=== PATIENT | male | born 1995 | race Two or more races ===

== ENCOUNTER 2020-02-27 17:25 | Emergency (ER) | payer OTHER ==
[~2020-02-27] VITALS: Ht 172.7 cm; Wt 72.7 kg
--- NOTE | 2020-02-27 17:51 | PHYS DOC ---
General Adult EDM: Chief Complaint: SUICDAL IDEATION HPI: HPI: Patient is a 24 year old male who presents with suicidal ideation. His supervising officer found a suicide note and called the police. The patient was found in the park with a fire arm. The patient states his plan today was to shoot himself. Patient states that back in November his daughter and was 2 days old. He states he is now recently going through divorce. States in the past that he had thoughts of committing suicide by overdosing on hydrocodone. He does not currently have any other medication in his possession. He states he is not on any medications. He states he has never been diagnosed with anything. (MARGO ROBERTS APRN) Review of Systems: Review of Systems: Constitutional: Denies fever or chills. [] Eyes: Denies change in visual acuity. [] HENT: Denies nasal congestion or sore throat. [] Respiratory: Denies cough or shortness of breath. [] Cardiovascular: Denies chest pain or edema. [] GI: Denies abdominal pain, nausea, vomiting, bloody stools or diarrhea. [] : Denies dysuria. [] Musculoskeletal: Denies back pain or joint pain. [] Integument: Denies rash. [] Neurologic: Denies headache, focal weakness or sensory changes. [] Endocrine: Denies polyuria or polydipsia. [] Lymphatic: Denies swollen glands. [] Psychiatric: + Suicidal ideation. denies depression or anxiety. [] (MARGO ROBERTS APRN) Heart Score: Risk Factors: Risk Factors: DM, Current or recent (<one month) smoker, HTN, HLP, family history of CAD, obesity. Risk Scores: Score 0 - 3: 2.5% MACE over next 6 weeks - Discharge Home Score 4 - 6: 20.3% MACE over next 6 weeks - Admit for Clinical Observation Score 7 - 10: 72.7% MACE over next 6 weeks - Early Invasive Strategies (MARGO ROBERTS APRN) Allergies: Allergies: Allergies Coded Allergies Type Severity Reaction Last Updated Verified peanut Allergy Unknown 02/27/20 Yes (MARGO ROBERTS APRN) Physical Exam: PE: Constitutional: Well developed, well nourished, no acute distress, non-toxic appearance. [] HENT: Normocephalic, atraumatic, bilateral external ears normal, oropharynx moist, no oral exudates, nose normal. [] Eyes: PERRLA, EOMI, conjunctiva normal, no discharge. [] Neck: Normal range of motion, no tenderness, supple, no stridor. [] Cardiovascular:Heart rate regular rhythm, no murmur [] Lungs & Thorax: Bilateral breath sounds clear to auscultation [] Abdomen: Bowel sounds normal, soft, no tenderness, no masses, no pulsatile masses. [] Skin: Warm, dry, no erythema, no rash. [] Back: No tenderness, no CVA tenderness. [] Extremities: No tenderness, no cyanosis, no clubbing, ROM intact, no edema. [] Neurologic: Alert and oriented X 3, normal motor function, normal sensory function, no focal deficits noted. [] Psychologic: Affect normal, judgement normal, mood normal. Suicidal ideation [] (MARGO ROBERTS APRN) EKG: EKG: [] (MARGO ROBERTS APRN) Radiology/Procedures: Radiology/Procedures: [] (MARGO ROBERTS APRN) Course & Med Decision Making: Course & Med Decision Making Pertinent Labs and Imaging studies reviewed. (See chart for details) See HPI. Patient is calm and cooperative. He states that he would be willing to go to a psychiatric facility if needed. He is alert and oriented x4. Speaks in full complete sentences. Ambulatory with a steady gait. Denies hallucinations, drug use, alcohol use. I have spoken to Gorge with PAT team who is coming in to speak with the patient. Patient is a one-to-one and on suicidal precautions. The PET team has been here to speak with the patient. Patient has been medically cleared. The patient has been accepted to [facility] in [place]. Patient was accepted by Dr Ortiz [] (MARGO ROBERTS APRN) Tiara Disclaimer: Tiara Disclaimer: This electronic medical record was generated, in whole or in part, using a voice recognition dictation system. (MARGO ROBERTS APRN) Departure Departure Impression: Primary Impression: Suicidal ideation Disposition: 66 DC/TRF TO PSYCH HOSP ([facility] in [place]) Condition: STABLE Attending Signature Attending Signature I have reviewed the PA/AUTO BODY STRAIGHTENER's note and plan of care. I was available for consultation as needed during the patient's visit in the emergency department. I agree with the clinical impression, plan, and disposition. (KRUPA CHAVEZ DO) MARGO ROBERTS APRN Feb 27, 2020 17:51 KRUPA CHAVEZ DO Feb 28, 2020 10:21
[2020-02-27 17:53] LABS: BASO % 0 % (0-3); EOS # 0.1 x10^3/uL (0.0-0.7); EOS % 2 % (0-3); HEMATOCRIT 44.8 % (39.0-53.0); HEMOGLOBIN 14.8 g/dL (13.0-17.5); LYMPH # 1.1 x10^3/uL (1.0-4.8); LYMPH % 13 % (24-48); MEAN CORPUSCULAR HEMOGLOBIN 29 pg (25-35); MEAN CORPUSCULAR HGB CONC 33 g/dL (31-37); MEAN CORPUSCULAR VOLUME 87 fL (79-100); MONO # 0.3 x10^3/uL (0.0-1.1); MONO % 4 % (0-9); NEUT # 6.8 x10^3/uL (1.8-7.7); NEUT % 82 % (31-73); PLATELET COUNT 262 x10^3/uL (140-400); RED BLOOD COUNT 5.16 x10^6/uL (4.30-5.70); RED CELL DISTRIBUTION WIDTH 13.3 % (11.5-14.5); WHITE BLOOD COUNT 8.4 x10^3/uL (4.0-11.0)
[2020-02-27 18:00] LABS: BARBITURATES NEG (NEG); BENZODIAZEPINES NEG (NEG); CANNABINOIDS NEG (NEG); COCAINE NEG (NEG); METHADONE NEG (NEG); OPIATES NEG (NEG); PHENCYCLIDINE NEG (NEG)
[2020-02-27 18:03] LABS: AMPHETAMINE/METHAMPHETAMINE NEG (NEG)
[2020-02-27 18:06] LABS: CALCIUM 9.2 mg/dL (8.5-10.1); CREATININE 0.9 mg/dL (0.7-1.3); GFR 104.6; POTASSIUM 3.6 mmol/L (3.5-5.1)
[2020-02-27 18:09] LABS: ACETAMIN < 2 mcg/ml (10-30); SALIC < 2.8 mg/dL (2.8-20.0)
[2020-02-27 18:12] LABS: ALBUMIN 4.7 g/dL (3.4-5.0); TOTAL PROTEIN 7.7 g/dL (6.4-8.2)
[2020-02-27 18:13] LABS: ALBUMIN/GLOBULIN RATIO 1.6 (1.0-1.7); TOTAL BILIRUBIN 1.4 mg/dL (0.2-1.0)
[2020-02-27 22:48] VITALS: BP 135/83
== END 2020-02-27 22:50 ==
LOC: ER 17:25
DX: R45.851 Suicidal ideations (principal); Z20.828 Contact with and (suspected) exposure to other viral communicable diseases; Z91.010 Allergy to peanuts
CPT/HCPCS: 36415; 80053; 80307; 80329; 85025; 87426; 99285; C9803; G0480; U0003